=== PATIENT | female | born 1945 | race Caucasian/White ===

== ENCOUNTER → 2016-06-29 | Outpatient (CLI) | payer OTHER, BC ==
[~2016-06-29] MED LIST: APPLE CIDER VI1 EAC2 PO; [UNRECOGNIZED DRUG - OTHER]; chromium; vitamin b
== END | disposition home or self-care (01) ==
DX: M17.12 Unilateral primary osteoarthritis, left knee (principal); R26.2 Difficulty in walking, not elsewhere classified; M62.81 Muscle weakness (generalized); M25.662 Stiffness of left knee, not elsewhere classified
CPT/HCPCS: 97110 GP; 97150 GO; 97161 GP; 97165 GO; G8978 GP; G8979 GP; G8980 GP; G8987 GO; G8988 GO; G8989 GO

== ENCOUNTER 2016-07-13 09:22 | Inpatient (IN) | payer OTHER, BC ==
[~2016-07-13] VITALS: Ht 165.1 cm; Wt 85.4 kg
[~2016-07-13 09:22] MED LIST changes: +CHROMIUM400 MCG PO; +CINNAMON500 MG PO; +GINKGO BILOBA120 M1 PO; +VITAMIN E400 UNIT PO
[2016-08-04] MEDS ORDERED: CHROMIUM PICO200 MCG PO (10:50)
[2016-08-09 09:29] VITALS: BP 137/65
[2016-08-09 14:02] LABS: HEMATOCRIT 35.3 % (36.0-46.0); MCH 30.7 PG (29.0-34.0); MCHC 32.6 G/DL (30.0-36.0); MCV 94.1 FL (83-99); MEAN PLAT.VOLUME 9.7 uM^3 (9.5-12.4); PLATELET COUNT 249 K/uL (156-360); RBC DIS.WIDTH-CV 14.5 % (11.8-14.6); RBC DIS.WIDTH-SD 49.9 % (39-53); RED BLOOD COUNT 3.75 M/uL (3.80-5.20); WHITE BLOOD COUNT 7.9 K/uL (4.1-10.2)
[2016-08-09 17:10] VITALS: BP 171/77
[2016-08-09 18:46] VITALS: BP 175/77
[2016-08-09 20:35] VITALS: BP 155/65
[2016-08-10 00:27] VITALS: BP 135/65
[2016-08-10 05:54] LABS: ANION GAP 8 MEQ/L (2-14); CHLORIDE 99 MEQ/L (99-109); GFR ESTIMATE (CALCULATED) > 59 mL/min/; GLUCOSE 137 mg/dL (70-99); POTASSIUM 3.9 MEQ/L (3.7-5.4); SAMPLE HEMOLYSIS CHECK 0; SAMPLE ICTERIC CHECK 0; SAMPLE LIPEMIA CHECK 0; SODIUM 133 MEQ/L (136-147); UREA NITROGEN (BUN) 14 mg/dL (9-23)
[2016-08-10 06:09] LABS: HEMATOCRIT 34.4 % (36.0-46.0); MCV 92.7 FL (83-99)
[2016-08-10 08:02] VITALS: BP 144/67
[2016-08-10 12:25] VITALS: BP 198/50
[2016-08-10 15:39] VITALS: BP 174/69
[2016-08-10 20:00] VITALS: BP 173/79
[2016-08-11 00:10] VITALS: BP 172/80
[2016-08-11 04:15] VITALS: BP 185/74
[2016-08-11 05:23] LABS: HEMATOCRIT 31.7 % (36.0-46.0); MCV 89.5 FL (83-99)
[2016-08-11 05:52] LABS: ANION GAP 8 MEQ/L (2-14); CHLORIDE 92 MEQ/L (99-109); GFR ESTIMATE (CALCULATED) > 59 mL/min/; GLUCOSE 161 mg/dL (70-99); POTASSIUM 3.8 MEQ/L (3.7-5.4); SAMPLE HEMOLYSIS CHECK 0; SAMPLE ICTERIC CHECK 0; SAMPLE LIPEMIA CHECK 0; SODIUM 127 MEQ/L (136-147); UREA NITROGEN (BUN) 10 mg/dL (9-23)
[2016-08-11 08:00] VITALS: BP 132/61
[2016-08-11] MEDS ORDERED: DOCUSATE SODIU100 MG PO (08:50)
[2016-08-11] MEDS ORDERED: LOVENOX40 MG/0.4 SC (08:51)
[2016-08-11] MEDS ORDERED: CELECOXIB200 MG PO (08:51)
[2016-08-11] MEDS ORDERED: TRAMADOL HCL50 MG PO (08:51)
[2016-08-11 12:00] VITALS: BP 151/70
[2016-08-11 15:09] VITALS: BP 177/79
[2016-08-11 20:30] VITALS: BP 141/71
[2016-08-12] VITALS: BP 119/59
[2016-08-12 04:00] VITALS: BP 149/71
[2016-08-12 06:18] LABS: ANION GAP 6 MEQ/L (2-14); GFR ESTIMATE (CALCULATED) > 59 mL/min/; GLUCOSE 121 mg/dL (70-99); POTASSIUM 3.9 MEQ/L (3.7-5.4); SAMPLE HEMOLYSIS CHECK 0; SAMPLE ICTERIC CHECK 0; SAMPLE LIPEMIA CHECK 0; SODIUM 140 MEQ/L (136-147); UREA NITROGEN (BUN) 9 mg/dL (9-23)
[2016-08-12 06:19] LABS: CHLORIDE 104 MEQ/L (99-109)
[2016-08-12 07:58] VITALS: BP 171/78
[2016-08-12 08:13] VITALS: BP 135/66
[2016-08-12 11:36] VITALS: BP 120/76
== END 2016-08-12 13:43 | DRG 470 ==
LOC: 2SOUTH 09:22 → 3WEST 08-09 08:50 → 2SOUTH 08-09 09:22 → 3WEST 08-09 16:44
PROVIDERS: Orthopaedic Surgery; Physician Assistant
PROC: 0SRD0J9 Replacement of Left Knee Joint with Synthetic Substitute, Cemented, Open Approach (ICD-10-PCS; principal; 2016-08-09)
DX: M17.12 Unilateral primary osteoarthritis, left knee (principal); M21.162 Varus deformity, not elsewhere classified, left knee; M25.562 Pain in left knee; R26.89 Other abnormalities of gait and mobility; J45.909 Unspecified asthma, uncomplicated; N20.0 Calculus of kidney; E87.1 Hypo-osmolality and hyponatremia
CPT/HCPCS: 71010; 73560; 80048; 84295; 85014; 85018; 85027; J0131; J1100; J1170; J1650; J1885; J2250; J2405; J2795; J3010; J7030; J7050

== ENCOUNTER 2016-10-12 08:45 | Emergency (ER) | payer OTHER, BC ==
[~2016-10-12] VITALS: Ht 165.1 cm; Wt 78.0 kg
[~2016-10-12 08:45] MED LIST changes: +CELECOXIB200 MG PO; +CHROMIUM PICO200 MCG PO; +DOCUSATE SODIU100 MG PO; +LOVENOX40 MG/0.4 SC; +TRAMADOL HCL50 MG PO
[2016-10-12 10:27] LABS: EOSINOPHIL (%) 0.6 % (0-5); EOSINOPHIL COUNT 0.1 K/uL (0-0.3); HEMATOCRIT 36.1 % (36.0-46.0); IMMATURE GRANULOCYTE (%) 0.6 % (0.0-0.7); IMMATURE GRANULOCYTE COUNT 0.1 K/uL; INSTRUMENT ABS NEUTROPHIL CT 6.8 K/uL; LYMPHOCYTE COUNT 1.4 K/uL (1.0-2.8); MCH 29.6 PG (29.0-34.0); MCHC 32.4 G/DL (30.0-36.0); MCV 91.4 FL (83-99); MEAN PLAT.VOLUME 9.3 uM^3 (9.5-12.4); MONOCYTE (%) 11.9 % (3-12); MONOCYTE COUNT 1.1 K/uL (0-0.8); NEUTROPHIL (%) 71.9 % (45-76); NEUTROPHIL COUNT 6.8 K/uL (1.8-6.4); PLATELET COUNT 325 K/uL (156-360); RBC DIS.WIDTH-CV 12.5 % (11.8-14.6); RBC DIS.WIDTH-SD 41.9 % (39-53); RED BLOOD COUNT 3.95 M/uL (3.80-5.20); WHITE BLOOD COUNT 9.4 K/uL (4.1-10.2)
[2016-10-12 10:34] LABS: CHLORIDE 105 mEq/L (99-109); POTASSIUM 4.6 mEq/L (3.7-5.4); SODIUM 140 mEq/L (136-147)
[2016-10-12 10:36] LABS: GLUCOSE 110 mg/dL (70-99)
[2016-10-12 10:37] LABS: ANION GAP 8 MEQ/L (2-14)
[2016-10-12 10:38] LABS: INTER. NORMALIZED RATIO 1.2; PTT 27.8 (25-32)
[2016-10-12 10:39] LABS: GFR ESTIMATE (CALCULATED) > 59 mL/min/
[2016-10-12 10:40] LABS: UREA NITROGEN (BUN) 9 mg/dL (9-23)
[2016-10-12 10:46] LABS: TROP-I INTERPRETATION NEGATIVE; TROPONIN-I < 0.01 ng/mL (0.0-0.30)
[2016-10-12] MEDS ORDERED: LEVAQUIN750 MG PO (12:35)
[2016-10-12 13:13] VITALS: BP 129/69
== END 2016-10-12 13:13 | disposition home or self-care (01) ==
LOC: EME 08:45
PROVIDERS: Emergency Medicine
DX: J18.9 Pneumonia, unspecified organism (principal); R07.81 Pleurodynia; Z87.891 Personal history of nicotine dependence
CPT/HCPCS: 71010; 71275; 80048; 84484; 85025; 85379; 85610; 85730; 93005; 93971; 99281; 99285

== ENCOUNTER 2017-10-07 16:55 | Emergency (ER) | payer OTHER, BC ==
[~2017-10-07] VITALS: Ht 165.1 cm; Wt 87.2 kg
[~2017-10-07 16:55] MED LIST changes: +LEVAQUIN750 MG PO
[2017-10-07 17:41] VITALS: BP 138/91
== END 2017-10-07 17:42 | disposition home or self-care (01) ==
LOC: EME 16:55
DX: S00.212A Abrasion of left eyelid and periocular area, initial encounter (principal); W22.8XXA Striking against or struck by other objects, initial encounter; Y93.H2 Activity, gardening and landscaping; J45.909 Unspecified asthma, uncomplicated; Z87.891 Personal history of nicotine dependence; Z88.0 Allergy status to penicillin
CPT/HCPCS: 99281; 99283

== ENCOUNTER 2017-10-26 19:35 | Emergency (ER) | payer OTHER, BC ==
[~2017-10-26] VITALS: Ht 165.1 cm; Wt 84.1 kg
[2017-10-26] MEDS ORDERED: ULTRACET1 TABLET PO (22:13)
[2017-10-26 22:33] VITALS: BP 178/83
== END 2017-10-26 22:33 | disposition home or self-care (01) ==
LOC: EME 19:35
DX: S39.012A Strain of muscle, fascia and tendon of lower back, initial encounter (principal); M25.522 Pain in left elbow; M25.562 Pain in left knee; M79.641 Pain in right hand; W01.0XXA Fall on same level from slipping, tripping and stumbling without subsequent striking against object, initial encounter; J45.909 Unspecified asthma, uncomplicated; Z87.891 Personal history of nicotine dependence; Z96.652 Presence of left artificial knee joint; Z88.0 Allergy status to penicillin
CPT/HCPCS: 70450; 72125; 72131; 73080; 73130; 73564; 99281; 99283